=== PATIENT | male | born 1985 | race Caucasian/White ===

== ENCOUNTER 2018-09-11 08:32 | Emergency (ER) | payer OTHER ==
[~2018-09-11] VITALS: Ht 172.7 cm; Wt 77.1 kg
[2018-09-11 10:00] VITALS: BP 118/72
== END 2018-09-11 10:02 | disposition home or self-care (01) ==
LOC: ER 08:32
DX: S61.451A Open bite of right hand, initial encounter (principal); W64.XXXA Exposure to other animate mechanical forces, initial encounter; Y93.89 Activity, other specified; Y92.89 Other specified places as the place of occurrence of the external cause; Y99.8 Other external cause status
CPT/HCPCS: Z7502